=== PATIENT | male | born 1980 | race Caucasian/White ===

== ENCOUNTER → 2018-11-21 | Outpatient (REF) ==
--- NOTE | 2018-11-22 04:18 | REP ---
Clinical: Pain. Technique: AP, lateral, bilateral oblique views of the left ankle. Findings: Evidence for old bilateral malleolar fractures with satisfactory fixation and reduction. Underlying post traumatic arthritic changes include cortical irregularity, joint space narrowing, and subchondral sclerosis through the ankle and hind/mid foot. 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 Electronically Signed by Librado Rosado MD 11/22/2018 04:10 A
--- NOTE | 2018-11-22 04:19 | REP ---
Clinical: Left shoulder pain. Technique: Internal rotation, external rotation, and Y view of the left shoulder. Findings: Very minimal generalized changes include subtle cortical irregularity at the acromioclavicular joint. The glenohumeral joint appears intact and normal. Subacromial space is normal. No periarticular calcifications or loose bodies identified. Impression: Mild generalized age-related changes primarily involving the acromioclavicular joint. Electronically Signed by Librado Rosado MD 11/22/2018 04:12 A
== END ==
LOC: M SMT 10:06
PROVIDERS: ATTEND Internal Medicine
DX: Z02.89 Encounter for other administrative examinations (principal)

== ENCOUNTER 2019-01-24 08:09 | Day surgery (SDC) | payer OTHER ==
[~2019-01-24] VITALS: Ht 172.7 cm; Wt 89.8 kg
[~2019-01-24 08:09] MED LIST: ACET-907 PO; BUPR300T34 PO; CLON-412 PO; PRAZ2CAP PO; XARE20TA PO
[2019-01-24] MEDS ORDERED: LR 1,000 ML IV ONE (08:15)
[2019-01-24] MEDS ORDERED: AMPICILLIN SOD/SULBACTAM SOD 3 GM in D5W MINI-BAG PLUS 100 ML IV ONE (10:00)
[2019-01-24] MEDS ORDERED: dexameTHASONE 4 MG/ML 1ML VIAL (J1100) IV ONE (10:00)
[2019-01-24] MEDS ORDERED: LIDOCAINE 2% W/ EPINEPHRINE 1.7 ML DENTAL INJ As Ordered ONE ×2 (12:13→14:16)
[2019-01-24] MEDS ORDERED: LIDOCAINE 2% INJ 100 MG/5 ML SDV (FOR ANES.) As Ordered ONE (13:13)
[2019-01-24] MEDS ORDERED: fentaNYL 250 MCG/5 ML INJECTION (J3010) As Ordered ONE (13:13)
[2019-01-24] MEDS ORDERED: dexameTHASONE 4 MG/ML 1ML VIAL (J1100) As Ordered ONE (13:13)
[2019-01-24] MEDS ORDERED: ONDANSETRON 4MG/2ML VIAL (J2405) As Ordered ONE (13:13)
[2019-01-24] MEDS ORDERED: ROCURONIUM BROMIDE 50 MG/5 ML VIAL As Ordered ONE (13:13)
[2019-01-24] MEDS ORDERED: PROPOFOL 200 MG/20 ML VIAL As Ordered ONE (13:13)
[2019-01-24] MEDS ORDERED: MIDAZOLAM INJ 2 MG/2 ML VIAL (J2250) As Ordered ONE (13:13)
[2019-01-24] MEDS ORDERED: SUGAMMADEX SODIUM 500 MG/5 ML VIAL (BRIDION) As Ordered ONE (13:13)
[2019-01-24] MEDS ORDERED: KETOROLAC 60 MG/2 ML VIAL (J1885) As Ordered ONE (13:13)
[2019-01-24] MEDS ORDERED: NORCO, ANEXSIA 5/325MG TABLET (HYDROcodone/ACETAMINOPHEN) PO PRN (15:15)
[2019-01-24] MEDS ORDERED: fentaNYL 100 MCG/2 ML INJECTION (J3010) IV PRN (15:15)
[2019-01-24 18:33] VITALS: BP 158/89
--- NOTE | 2019-01-25 14:41 | RO ---
DATE OF PROCEDURE: 01/24/2019 PREOPERATIVE DIAGNOSES: Terminal dentition, failing dentition including teeth [address] to [address] then [address] to 32. POSTOPERATIVE DIAGNOSES: Status post terminal dentition, failing dentition including teeth [address] to [address] and then [address] to 32[address] PROCEDURE PERFORMED: Full mouth extraction, extraction of all the aforementioned teeth as well as four quadrants of alveoloplasty. ATTENDING SURGEON: Daniel Sebastian DMD, MD BUILDING ASSOCIATE: ANESTHESIA USED: General endotracheal anesthesia via nasal KATIA. SPECIMEN: Teeth for gross only. INDICATIONS FOR SURGERY: Mr. Pugh is a pleasant 38-year-old male who was referred to my office for evaluation for extraction of all of his remaining teeth. Clinical exam reveals that he has an abundant amount of bone loss throughout his dentition, failing teeth, including grossly decayed teeth down to the gum line as well as severe cervical caries. He does have severe dental anxiety, and he does not wish to have intravenous (IV) conscious sedation. He prefers to have general anesthesia an operating room setting. All the risks, benefits, and alternatives were explained to the patient. A complete history and physical and informed consent were obtained and are in the patient's chart. DESCRIPTION OF PROCEDURE: Patient presented to preoperative holding area. Any last minute questions were addressed. History and physical and the consent were updated. At that point, the patient was taken back to the operating room. He was is laid supine on the room table. Ulnar nerve protectors were placed. Noninvasive cardiac monitors were applied. At that point, the patient underwent general anesthesia and was intubated with a nasal KATIA. He was then prepped and draped in the usual sterile fashion. A time-out procedure was performed to identify the patient, the procedure, and any other precautions. Preoperative antibiotics and steroids were given in the IV. At this point, a moist throat pack was inserted in the patient's oropharynx followed by the administration of 2% lidocaine with 1:100,000 epinephrine as local infiltration and blocks. At this point. A 15-blade was then used to make a circular incision, and a full-thickness flap was raised across teeth number 2, 3, 4, 5, 6, 7, 8, 9, 10, 11, 12, 13, 14 and 15. Flaps were raised subperiosteally to expose the facial cortices of the teeth. At this point, a Surgairtome was then used to make a small buccal trough across all the aforementioned teeth, namely 2, 3, 4, 5, 6, 7, 8, 9, 10, 11, 12, 13, 14 and 15. The teeth were then luxated and delivered with forceps #150. All the sockets were curetted and irrigated. At this point, a rongeur was then used to perform alveoloplasty in the upper right, upper left quadrants to remove any undercuts and any sharp bony areas down to a smooth finish. All the sockets were once again irrigated and curetted, and the flaps were closed with #3-0 chromics in an interrupted fashion. At this point, attention was then given to the lower arch where a full-thickness flap was raised from teeth numbers 17 through 18, 19, 20, 21, 22, 23, 24, 25, 26, 27, 28, 29, 30, 31, and 32 with bilateral buccal hockey stick extensions. The flap was reflected exposing the facial cortices of all the teeth. The Surgairtome was then used to remove buccal bone in a trough fashion from teeth number 17, 18, 29, 20, 21, 22 as well as 27, 28, 29, 30, 31, 32. The teeth were then luxated and delivered in their entirety with forceps. All the sockets were curetted and irrigated. Rongeurs were then used to perform alveoloplasty in the lower left, lower right quadrants to remove any undercuts and any sharp bony areas, and a bone file was then used to make sure there was a smooth finish. Once all the teeth removed and the alveoloplasty was performed, sockets were once again irrigated. The flaps were trimmed and closed with interrupted #3-0 chromic sutures. Hemostasis was easily achieved. The oral cavity was irrigated and suctioned. The throat pack was removed. The patient was then awakened from general anesthesia and taken back to the postanesthesia care unit under my care and anesthesiologist's care. COMPLICATIONS: None to mention at time of surgery. ESTIMATED BLOOD LOSS: 20 mL. DRAINS: There were no drains placed.
== END 2019-01-24 18:33 | disposition home or self-care (01) ==
LOC: M SDC 08:09
PROVIDERS: ATTEND Dentist
DX: K02.9 Dental caries, unspecified (principal); K44.9 Diaphragmatic hernia without obstruction or gangrene; G47.30 Sleep apnea, unspecified; Z91.013 Allergy to seafood; Z79.899 Other long term (current) drug therapy; F43.10 Post-traumatic stress disorder, unspecified; F31.9 Bipolar disorder, unspecified; F41.9 Anxiety disorder, unspecified; Z86.718 Personal history of other venous thrombosis and embolism
CPT/HCPCS: 88300; D7210; D7310; D9223; J1100; J1885; J2250; J2405; J3010